=== PATIENT | male | born 2000 | race Caucasian/White ===

== ENCOUNTER 2024-03-10 17:02 | Emergency (ER) | payer OTHER ==
[2024-03-10 17:15] VITALS: BP 109/60; PULSE 70; RESP 16; TEMP 98.6; BMI 21.6
[2024-03-10] MEDS ORDERED: ACETAMINOPHEN 325 MG TABLET (FP) ONE (19:08)
[2024-03-10] MEDS: ACETAMINOPHEN 500 MG TABLET (FP) PO ONE (19:14)
== END 2024-03-10 20:41 | disposition home or self-care (01) ==
LOC: JER 17:02
DX: S09.90XA Unspecified injury of head, initial encounter (principal); H53.8 Other visual disturbances; W01.198A Fall on same level from slipping, tripping and stumbling with subsequent striking against other object, initial encounter
CPT/HCPCS: 70450-TC; 72125-TC; 99284-25